=== PATIENT | male | born 1955 | race Caucasian/White ===

== ENCOUNTER 2016-05-07 07:16 | Inpatient (IN) | payer BC, OTHER ==
[2016-04-20 13:14] VITALS: BMI 29.0
[2016-04-20 13:30] VITALS: BMI 29.0
--- NOTE | 2016-04-20 13:54 | PAT Medication Instructions ---
Service Date Apr 20, 2016. Current Home Medication List Allopurinol (Zyloprim), 300 MG PO QAM Clonidine Hcl (Catapres), 0.3 MG PO QPM Gabapentin (Neurontin), 300 MG PO QID Hydrocodone Bitartrate (Hysingla ER), 100 MG PO QAM Oxymorphone Hcl (Opana), 10 MG PO Q8H Prednisone (Prednisone), 10 MG PO QAM Pseudoephedrine (Sudafed), 30 MG PO Q12H [Mulaxalone], 800 MG PO PRN Medication Instructions For Your Scheduled Surgery - Hold the following medications the morning of surgery: Pseudoephedrine (Sudafed), 30 MG PO Q12H Metaxalone 800 MG PO PRN - Take the following medications the morning of surgery with a sip of water: Prednisone (Prednisone), 10 MG PO QAM Oxymorphone Hcl (Opana), 10 MG PO Q8H (can take up to four hours prior to surgery) Gabapentin (Neurontin), 300 MG PO QID Allopurinol (Zyloprim), 300 MG PO QAM Hydrocodone Bitartrate (Hysingla ER), 100 MG PO QAM (can take up to four hours prior to surgery) - Take the following medications as scheduled the night before surgery: Pseudoephedrine (Sudafed), 30 MG PO Q12H Oxymorphone Hcl (Opana), 10 MG PO Q8H Gabapentin (Neurontin), 300 MG PO QID Clonidine Hcl (Catapres), 0.3 MG PO QPM Metaxalone 800 MG PO PRN If you have any questions please call us at [phone] or [phone] ( [place]) or [phone]
--- NOTE | 2016-04-20 14:35 | DIAGNOSTIC IMAGING REPORT ---
TWO VIEW CHEST CLINICAL HISTORY: Preoperative examination. FINDINGS: PA and lateral chest radiographs are obtained. No prior studies are available for comparison at the time of dictation. The cardiomediastinal silhouette is unremarkable. There is mild atherosclerotic calcification of the thoracic aorta. The lungs and pleural spaces are clear. There is no pneumothorax. The bony thorax appears intact. Mild degenerative change is noted throughout the thoracic spine. IMPRESSION: No active disease in the chest. Electronically signed by: Roby Kurtz M.D. 04/20/2016 2:34 PM Dictated Date/Time: 04/20/2016 2:33 PM
[2016-04-20 14:48] LABS: URINE APPEARANCE CLEAR (CLEAR); URINE BILIRUBIN NEG (NEG); URINE COLOR YELLOW; URINE NITRITE NEG (NEG); URINE PH 5.5 (4.5-7.5); URINE SPECIFIC GRAVITY 1.002 (1.000-1.030); UROBILINOGEN NEG (NEG)
[2016-04-20 14:55] LABS: MANUAL MICROSCOPIC REQUIRED? NO; REVIEW REQ? NO
[2016-05-07] VITALS (10 sets, daily range): BP systolic 131–170; BP diastolic 74–90; PULSE 60–110; TEMP 36.4–36.8; O2SAT 91–98; Ht 170.2 cm; Wt 86.2 kg
[~2016-05-07] VITALS: Ht 170.2 cm; Wt 86.2 kg
[~2016-05-07 07:16] MED LIST: ALLO300T2 PO; CEFAZOLIN 2000 MG/60 ML D5W IV SCH; CLON0.3T3 PO; CeleBREX 200 MG CAP PO SCH; GABA-113 PO; LACTATED RINGER'S 1000ML 1,000 ML IV SCH; META1TAB22 PO; OXYM10TA6 PO; PRED10TA PO; PREGABALIN 75 MG CAP PO SCH; PROPOFOL IV EMULSION 10 MG/ML 100 ML VIAL IV ONE; PSEU30TA20 PO; [UNRECOGNIZED DRUG - CODE] PO
[2016-05-07] MEDS ORDERED: NURSING VERBAL MED ORDER STA (08:01)
[2016-05-07] MEDS ORDERED: MIDAZOLAM HCL 1 MG/ML 2ML VIAL ONE (10:13)
[2016-05-07] MEDS ORDERED: REMIFENTANIL 1 MG VIAL ONE ×2 (10:13→12:04)
[2016-05-07] MEDS ORDERED: FENTANYL CITRATE INJ 50 MCG/1 ML 2 ML VIAL ONE ×4 (10:13→12:21)
--- NOTE | 2016-05-07 10:28 | History and Physical ---
History & Physical Date May 07, 2016. Chief Complaint neck pain and bilateral hand numbness History of Present Illness The patient is a 60 year old male with complaints of above that have been chronic and progressive. He reports BUE myelopathic symptoms, mild balance problems, numbness in left hand. no incontinence. L hand weakness is worse. MRI shows multilevel spinal stenosis/congenital and acquired. no myelomalacia. Past Medical/Surgical History HTN Gout ash ZE ulnar neuropathy Additional History Hepatic Disease: No Endocrine Disorder: No Kidney Disease: No Hypertension: Yes Heart Disease: No Bleeding Tendencies: No Infectious Diseases: No Allergies Coded Allergies: Aspirin (Verified Allergy, Severe, TONGUE AND LIPS SWELL,HIVES, 05/07/16) Home Medications Scheduled Allopurinol (Zyloprim), 300 MG PO QAM Clonidine Hcl (Catapres), 0.3 MG PO QPM Gabapentin (Neurontin), 300 MG PO QID Hydrocodone Bitartrate (Hysingla ER), 100 MG PO QAM Oxymorphone Hcl (Opana), 10 MG PO Q8H Prednisone (Prednisone), 10 MG PO QAM Pseudoephedrine (Sudafed), 30 MG PO Q12H Scheduled PRN Metaxalone (Skelaxin), 1 TAB PO DAILY PRN for Pain Physical Examination Skin: warm/dry Eyes: normal inspection ENT: normal ENT inspection Head: normocephalic, atraumatic Neck: supple, trachea midline Respiratory/Chest: lungs clear Cardiovascular: regular rate, rhythm Back: normal inspection Extremities: normal inspection Neurologic/Psych: alert, normal reflexes, oriented x 3 Addiitonal Comments: L hand net manager weakness and decreased sensation ulnar digits Diagnosis cervical stenosis/DDD Plan of Treatment C3-6 decompression/fusion
[2016-05-07] MEDS ORDERED: THROMBIN FOR SOLN 20000 UNIT KIT ONE ×2 (10:40→11:53)
[2016-05-07] MEDS ORDERED: THROMBIN 5000 UNITS KIT ONE (10:40)
[2016-05-07] MEDS ORDERED: BUPIVACAINE/EPINEPHRINE 0.5% MPF 1:200,000 30 ML VIAL ONE (10:48)
[2016-05-07] MEDS ORDERED: FLOSEAL HEMOSTATIC MATRIX 5ML TOP ONE (12:53)
[2016-05-07] MEDS ORDERED: BETADINE OINTMENT (PACKETS) TOP ONE (12:53)
[2016-05-07] MEDS ORDERED: HYDROmorphone INJ 2 MG/ML SYR/VIAL ONE (12:57)
[2016-05-07] MEDS ORDERED: SODIUM CHLORIDE 0.9% 1000ML 1,000 ML IV SCH (13:00)
[2016-05-07] MEDS ORDERED: FAMOTIDINE 20 MG TAB PO PRN (13:00)
[2016-05-07] MEDS ORDERED: ALUMINUM/MAGNESIUM SUSP 30 ML UDC PO PRN (13:00)
[2016-05-07] MEDS ORDERED: METOCLOPRAMIDE HCL INJ 5 MG/ML 2 ML VIAL IV PRN (13:00)
[2016-05-07] MEDS ORDERED: LORAZEPAM INJ 0.5 MG in SYRINGE 0.75 ML IV PRN (13:00)
[2016-05-07] MEDS ORDERED: ONDANSETRON INJ 2 MG/ML 2 ML VIAL IV PRN ×2 (13:00→13:45)
[2016-05-07] MEDS ORDERED: ACETAMINOPHEN IV 100 ML IV PRN (13:00)
[2016-05-07] MEDS ORDERED: MAGNESIUM HYDROXIDE SUSP 30 ML UDC PO PRN (13:00)
[2016-05-07] MEDS ORDERED: NALOXONE HCL 0.4 MG/1 ML VIAL/CARP IV PRN ×3 (13:00→13:45)
[2016-05-07] MEDS ORDERED: LORAZEPAM 0.5 MG TAB PO PRN (13:00)
[2016-05-07] MEDS ORDERED: BISACODYL 10 MG SUPP PR PRN (13:00)
[2016-05-07] MEDS ORDERED: PROMETHAZINE HCL INJ 12.5 MG in SODIUM CHLORIDE 0.9% 50ML 50 ML IV PRN ×2 (13:00→13:45)
[2016-05-07] MEDS ORDERED: SOD PHOSPHATE/SOD BIPHOSPHATE ENEMA 132 ML BTL PR PRN (13:00)
--- NOTE | 2016-05-07 13:00 | [facility] Post Operative Brief Note ---
Immediate Operative Summary Operative Date May 07, 2016. Pre-Operative Diagnosis Cervical stenosis, Degenerative Disc Disease Post-Operative Diagnosis Cervical stenosis, Degenerative Disc Disease Procedure(s) Performed C3-C6 Posterior instrumented fusion and application of bone morphogenetic protein, with spinal cord monitoring Surgeon Dr. Santo Franklin It Trainee Surgeon(s) Orlin Beck PA-C Estimated Blood Loss 150 ml Findings dict Specimens None per surgeon
--- NOTE | 2016-05-07 13:14 | Discharge Instructions ---
Discharge Instructions Admission Reason for Admission: Cervical Spinal Stenosis Discharge Discharge Diagnosis / Problem: Cervical Stenosis Discharge Goals Goal(s): Decrease discomfort, Improve function, Increase independence Activity Recommendations Activity Limitations: as noted below Lifting Limitations: no more than 5 pounds Exercise/Sports Limitations: until after follow-up appointment May Resume Sexual Activity: after follow-up appointment Shower/Bathe: may shower/bathe in 3 days . Instructions / Follow-Up Instructions / Follow-Up ACTIVITY RECOMMENDATIONS: SELF CARE INSTRUCTIONS AFTER CERVICAL FUSIONS 1. No smoking. Smoking drastically decreases the chance of a solid fusion. 2. No bending, lifting more than 5 pounds, or twisting (roll like a log when turning in bed). 3. You may shower 3 days after surgery. Thoroughly dry wound. Do not soak in the tub. 4. Cervical collar: Must be worn at all times including sleeping. You may remove the brace only to bath, eat and if you are sitting in a recliner. 5. Please walk as much as you can for exercise. Gradually increase the distance that you walk as your endurance increases. SPECIAL CARE INSTRUCTIONS: VERY IMPORTANT TO READ AND REVIEW A. Do not take any anti-inflammatory medications (i.e. Indocin, Advil, Aspirin, Naprosyn, Aleve, Motrin, etc.) as these may inhibit the chance of a solid fusion. Tylenol is okay to take. B. Your surgical incision has been closed with a cosmetic suture under the skin that will dissolve in about 6 weeks. In 14 days, you can use a pair of clean scissors and cut the suture that is left outside of the skin at the ends of your incision. C. Complications are uncommon, but please contact us if you have any signs or symptoms of: 1. wound infection (fever higher than 102.5 degrees F, redness, separation of wound, drainage, or increasing pain from the incision) 2. blood clots in legs (pain, swelling, redness and warmth in legs) 3. urinary tract infection (fever higher than 102.5 degrees, burning upon urination or increased frequency of urination) 4. nerve problems (inability to walk on your toes or heels, numbness, loss of bowel or bladder control) 5. any other symptoms that concern you. D. Please call the office at if you have any concerns or questions about your operation or recovery. MANAGING PAIN AFTER SPINAL SURGERY 1. Narcotic medication is intended for short-term use and will be provided for surgical pain. Surgical pain usually lasts for a period of 4-6 weeks. Narcotic medication includes Percocet, Vicodin, Darvocet, Tylenol #3 or Lortab. 2. Longer-term pain is more appropriately treated with non-narcotic medication such as Tylenol ES. 3. Muscle spasm is not appropriately treated with narcotics. Muscle relaxers such as Soma, Flexeril or Skelaxin can be used along with Tylenol ES. 4. Remember that we all live with some "aches and pains". This is not unusual or uncommon after an injury or as we get older. 5. We will provide appropriate medication within the normal guidelines of their prescribed use. We will also be very cautious and aware of potential abuse and extended duration of patients' medication needs. 6. Please allow 2-3 days to process refills. Prescriptions will not be mailed but must be picked up at the office. FOLLOW UP VISIT: Keep your scheduled follow-up appointment. Any questions, please call the office at . Current Hospital Diet Patient's current hospital diet: Regular Diet Discharge Diet Recommended Diet: Regular Diet Procedures Procedures Performed: C3-C6 Posterior instrumented fusion and application of bone morphogenetic protein, with spinal cord monitoring Pending Studies Studies pending at discharge: no Medical Emergencies . Who to Call and When: Medical Emergencies: If at any time you feel your situation is an emergency, please call 911 immediately. . Non-Emergent Contact Non-Emergency issues call your: Surgeon Call Non-Emergent contact if: temperature is above 101, your pain is not controlled, your pain is worsening, your pain is unusual for you, your pain is concerning you, wound has increased drainage, wound has increased redness, wound has increased pain, you have any medication questions . "Provider Documentation" section prepared by Orlin Beck. VTE Core Measure Inpt VTE Proph given/why not?: [place] [employer] [facility] [employer] [facility] Search Results: patient reviewed within database, no issues identified
[2016-05-07] MEDS ORDERED: HydrALAZINE HCL 20 MG/ML VIAL ONE (13:20)
[2016-05-07] MEDS ORDERED: HYDROmorphone HCL 0.5MG/ML 50 ML CASSETTE ONE (13:25)
[2016-05-07] MEDS ORDERED: DEXAMETHASONE SOD INJ 4 MG/ML VIAL ONE (13:29)
[2016-05-07] MEDS ORDERED: ONDANSETRON INJ 2 MG/ML 2 ML VIAL ONE (13:29)
[2016-05-07] MEDS ORDERED: LIDOCAINE HCL 2% 2 ML VIAL (20MG/ML) ONE (13:29)
[2016-05-07] MEDS ORDERED: SUCCINYLCHOLINE CHLORIDE 20 MG/ML 10 ML VIAL IV ONE (13:29)
[2016-05-07] MEDS ORDERED: HYDROmorphone INJ 1 MG/ML SYR ONE (13:29)
[2016-05-07] MEDS ORDERED: PROPOFOL IV EMULSION 10 MG/ML 20 ML VIAL IV ONE (13:29)
[2016-05-07] MEDS: HYDROmorphone INJ 1 MG/ML SYR IV PRN ×8 (13:33→14:08)
[2016-05-07] MEDS ORDERED: LABETALOL HCL IV 5 MG/ML 20ML IV PRN (13:45)
[2016-05-07] MEDS ORDERED: EpHEDrine SULFATE INJ 50 MG/ML AMP IV PRN (13:45)
[2016-05-07] MEDS ORDERED: ATROPINE SULFATE 0.1 MG/ML 5ML SYR IV PRN (13:45)
[2016-05-07] MEDS ORDERED: FLUMAZENIL 0.1 MG/1 ML 10 ML VIAL IV PRN (13:45)
--- NOTE | 2016-05-07 14:15 | Anesthesiology Progress Note ---
Anesthesia Post Op Note Date & Time May 07, 2016 at 14:14 Vital Signs Pain Intensity: 6.0 Vital Signs Past 12 Hours Date Time Temp Pulse Resp B/P Pulse Ox O2 Delivery O2 Flow Rate FiO2 05/07/16 14:00 66 16 165/95 99 Nasal Cannula 4 05/07/16 13:50 73 16 175/112 100 Nasal Cannula 4 05/07/16 13:40 61 16 170/97 100 Mask 10 05/07/16 13:30 72 16 172/98 100 Mask 10 05/07/16 13:21 36.7 77 16 174/116 100 Mask 10 05/07/16 08:02 36.8 69 18 131/83 95 Room Air Notes Mental Status: alert / awake / arousable, participated in evaluation Pt Amnestic to Procedure: Yes Nausea / Vomiting: adequately controlled Pain: adequately controlled Airway Patency, RR, SpO2: stable & adequate BP & HR: stable & adequate Hydration State: stable & adequate Anesthetic Complications: no major complications apparent
--- NOTE | 2016-05-07 14:31 | DIAGNOSTIC IMAGING REPORT ---
INTRAOPERATIVE FLUOROSCOPIC IMAGES OF THE CERVICAL SPINE CLINICAL HISTORY: Posterior cervical fusion from C3 through C6. COMPARISON STUDY: No previous studies for comparison. Fluoroscopy time: 12 seconds. FINDINGS: These 4 fluoroscopic images demonstrate a posterior cervical spine fusion from C3 through C6. The hardware appears intact. There are interconnecting rods. Surgical drain is in place. Endotracheal tube is incidentally noted. IMPRESSION: Fluoroscopic images demonstrate a C3-C6 posterior fusion. Electronically signed by: Shadi Carmona M.D. 05/07/2016 2:30 PM Dictated Date/Time: 05/07/2016 2:28 PM
[2016-05-07] MEDS: HYDROmorphone HCL 0.5MG/ML 50 ML CASSETTE IV PRN ×3 (15:07→23:30)
[2016-05-07] MEDS: SODIUM CHLORIDE 0.9% 1000ML 1,000 ML IV SCH (15:28)
--- NOTE | 2016-05-07 15:50 | OPERATIVE REPORT ---
DATE OF OPERATION: 05/07/2016 PREOPERATIVE DIAGNOSES: 1. Cervical stenosis. 2. Cervical myelopathy. POSTOPERATIVE DIAGNOSIS: Same. PROCEDURES: 1. C4, C5 and C6 laminectomies. 2. Segmental lateral mass screw instrumentation - bilateral C3, C4, C5 and C6 with K2M posterior cervical system. 3. Posterior fusion C3-C6 - bilateral with Infuse BMP on a collagen sponge, tricalcium phosphate, local bone and bone putty. SURGEON: Dr. Franklin. OFFICE SPECIALIST: Orlin Beck PA-C. Please note he participated in all portions of the procedure and was critical for performance of the procedure, participated in positioning, prepping, draping, retraction and wound closure. ANESTHESIA: General endotracheal anesthesia. COMPLICATIONS: None. ESTIMATED BLOOD LOSS: 150 mL. DESCRIPTION OF PROCEDURE: After identification of patient and operative level, he was brought to the OR where he underwent induction of general anesthesia. He then had Negron tongs applied to the skull, positioned prone with spine-positioning pads on the Yaw table. Arms tucked to sides and well padded. All bony prominences were well padded. The posterior cervical region was sterilely prepped and draped in usual fashion. Antibiotics were administered. Time-out was performed. Level was confirmed and spinal cord monitoring signals were obtained and a midline incision was made from spinous process of C2-C7. I performed a routine posterior exposure, placed Gelpi retractors, confirmed level with fluoroscopy and marked the operative levels. I exposed the lateral masses bilaterally. I then did a midline decompression with complete removal of C4, C5 and C6 lamina en bloc. I created a trough on each side with a rehana and #1 Kerrison and then released the ligamentous attachments and remove the lamina and spinous processes en bloc. I then completed decompression with Kerrisons, performed foraminotomies as necessary, all nerve roots were decompressed. I applied FloSeal for hemostasis. I then predrilled lateral mass screw holes bilaterally from C3-C6. The drill on a stop, tapped all the holes, 12 mm screws were then placed from C3-C6 bilaterally using K2M system. I checked screw trajectory position and length with fluoroscopy. I then applied rods and end caps final tightening as well as a crosslink. I irrigated with bacitracin solution and decorticated the lateral masses with a high speed bur bilaterally from C3-C6 and then packed the lateral gutters with bone graft mixture consisting of Infuse BMP on a collagen sponge, tricalcium phosphate, local bone, and bone putty. Closed in layered fashion over NATE drain. All sponge and needle counts were correct at the end of the case. I attest to the content of the Intraoperative Record and any orders documented therein. Any exceptio ns are noted below.
[2016-05-07] MEDS ORDERED: NURSING VERBAL MED ORDER ONE (16:15)
[2016-05-07] MEDS: GABAPENTIN 300 MG CAP PO SCH ×2 (17:09→21:57)
[2016-05-07] MEDS: DEXAMETHASONE INJ 6 MG in SYRINGE 0 ML IV SCH (17:09)
[2016-05-07] MEDS: CEFAZOLIN IV 2,000 MG in DEXTROSE 5% 50ML 50 ML IV SCH (17:09)
[2016-05-07] MEDS: CLONIDINE HCL 0.3 MG TAB PO SCH (21:55)
[2016-05-07] MEDS: DOCUSATE SODIUM/SENNA 50/8.6MG TAB PO SCH (21:57)
[2016-05-08] MEDS: CEFAZOLIN IV 2,000 MG in DEXTROSE 5% 50ML 50 ML IV SCH (02:04)
[2016-05-08] MEDS: DEXAMETHASONE INJ 6 MG in SYRINGE 0 ML IV SCH ×2 (02:05→09:48)
[2016-05-08] MEDS: SODIUM CHLORIDE 0.9% 1000ML 1,000 ML IV SCH (02:06)
[2016-05-08 03:07] VITALS: BP 127/73; PULSE 60; TEMP 36.8; O2SAT 96
[2016-05-08] MEDS: OXYMORPHONE PO SCH ×5 (06:00→22:05)
[2016-05-08] MEDS ORDERED: OXYMORPHONE PO SCH (06:00)
[2016-05-08] MEDS ORDERED: HYDROmorphone INJ 0.5 MG/0.5 ML SYR IV PRN (06:00)
[2016-05-08] MEDS ORDERED: NURSING VERBAL MED ORDER ONE ×2 (06:15→14:15)
[2016-05-08 06:32] LABS: BASO % 0.1 %; BASO ABS # 0.01 K/uL (0-0.2); COMPLETE YES; EOS % 0.1 %; HEMATOCRIT 37.5 % (42-52); IG% 0.3 %; LYMPH % 3.9 %; LYMPH ABS # 0.78 K/uL (1.2-3.4); MEAN CELL VOLUME 92.4 fL (80-100); MEAN CORPUSCULAR HEMOGLOBIN 32.5 pg (25-34); MEAN CORPUSCULAR HGB CONC 35.2 g/dl (32-36); MONO % 3.3 %; NEUT % 92.3 %; PLATELET COUNT 222 K/uL (130-400); RED BLOOD COUNT 4.06 M/uL (4.7-6.1); WHITE BLOOD COUNT 19.99 K/uL (4.8-10.8)
[2016-05-08 07:02] LABS: BUN/CREATININE RATIO 15.8 (10-20); CALCIUM 8.4 mg/dl (8.5-10.1); CREATININE 0.88 mg/dl (0.60-1.40)
[2016-05-08 07:08] VITALS: BP 138/80; PULSE 45; TEMP 36.7; O2SAT 95
[2016-05-08] MEDS: GABAPENTIN 300 MG CAP PO SCH ×4 (08:23→22:04)
[2016-05-08] MEDS: ALLOPURINOL 300 MG TAB PO SCH (08:24)
[2016-05-08] MEDS ORDERED: HYDROmorphone INJ 1 MG/ML SYR ONE (08:27)
[2016-05-08] MEDS: OXYCODONE HCL IR 5 MG TAB (IMMEDIATE RELEASE) PO PRN ×2 (11:45→17:58)
[2016-05-08 12:00] VITALS: BP 161/74; PULSE 58; TEMP 36.7; O2SAT 96
[2016-05-08] MEDS: HYDROmorphone INJ 1 MG/ML SYR IV PRN ×4 (12:10→22:06)
[2016-05-08 15:18] VITALS: BP 121/79; PULSE 66; TEMP 36.6; O2SAT 95
[2016-05-08] MEDS ORDERED: OXYMORPHONE PO PRN ×2 (15:45→16:15)
[2016-05-08] MEDS ORDERED: HYDROCODONE PO PRN ×2 (16:00→16:15)
[2016-05-08 16:30] VITALS: O2SAT 95
[2016-05-08] MEDS: DOCUSATE SODIUM/SENNA 50/8.6MG TAB PO SCH (22:04)
[2016-05-08] MEDS: CLONIDINE HCL 0.3 MG TAB PO SCH (22:04)
[2016-05-08 23:05] VITALS: BP 142/73; PULSE 68; TEMP 36.7; O2SAT 93
[2016-05-09] MEDS: OXYCODONE HCL IR 5 MG TAB (IMMEDIATE RELEASE) PO PRN ×4 (03:46→20:28)
[2016-05-09] MEDS: HYDROmorphone INJ 1 MG/ML SYR IV PRN ×2 (04:09→07:35)
[2016-05-09] MEDS: OXYMORPHONE PO SCH ×3 (05:56→21:19)
[2016-05-09 07:24] VITALS: BP 151/73; PULSE 58; TEMP 36.5; O2SAT 95
[2016-05-09] MEDS: ALLOPURINOL 300 MG TAB PO SCH (08:27)
[2016-05-09] MEDS: GABAPENTIN 300 MG CAP PO SCH ×4 (08:59→20:45)
[2016-05-09] MEDS ORDERED: HYDROCODONE PO SCH (09:00)
[2016-05-09] MEDS ORDERED: NON-FORMULARY PATIENT'S OWN MED PO SCH ×2 (10:00)
[2016-05-09] MEDS ORDERED: HYDROmorphone INJ 2 MG/ML SYR/VIAL ONE (10:17)
--- NOTE | 2016-05-09 10:23 | Orthopedic Progress Note ---
Orthopedic Progress Note Date of Service May 09, 2016. Subjective Post OP Day: 2 Denies: SOB, calf pain, chest pain, complaints, feeling well, light headedness, nausea / vomiting, pain controlled w PO medications, using SOLID WASTE COLLECTOR Additional Notes: pain control an issue, pharmacy does not have his home meds,d Objective Date Time Temp Pulse Resp B/P Pulse Ox O2 Delivery O2 Flow Rate FiO2 05/09/16 09:37 Room Air 05/09/16 07:24 36.5 58 18 151/73 95 Room Air 05/09/16 00:20 Room Air 05/08/16 23:05 36.7 68 17 142/73 93 Room Air 05/08/16 16:30 95 Room Air 05/08/16 15:18 36.6 66 18 121/79 95 Room Air 05/08/16 12:00 36.7 58 16 161/74 96 Room Air Assessment & Plan Assessment: he will start his long acting hycingla today, add decadron and dilaudi Discharge Planning Discharge Planning: home Pain Management: other DVT Prophylaxis: SCDs
[2016-05-09] MEDS: DEXAMETHASONE INJ 8 MG in SYRINGE 0 ML IV SCH ×2 (12:40→20:45)
[2016-05-09 15:10] VITALS: BP 141/75; PULSE 60; TEMP 36.7; O2SAT 96
[2016-05-09 15:30] VITALS: O2SAT 96
[2016-05-09] MEDS: HYDROmorphone INJ 2 MG/ML SYR/VIAL IV PRN ×2 (16:46→23:43)
[2016-05-09 20:45] VITALS: BP 148/83; PULSE 65
[2016-05-09] MEDS: DOCUSATE SODIUM/SENNA 50/8.6MG TAB PO SCH (20:45)
[2016-05-09] MEDS: CLONIDINE HCL 0.3 MG TAB PO SCH (20:47)
[2016-05-09 23:23] VITALS: BP 129/83; PULSE 72; TEMP 36.8; O2SAT 95
[2016-05-10] MEDS: OXYCODONE HCL IR 5 MG TAB (IMMEDIATE RELEASE) PO PRN ×3 (02:02→11:13)
[2016-05-10] MEDS: DEXAMETHASONE INJ 8 MG in SYRINGE 0 ML IV SCH ×2 (04:11→11:59)
[2016-05-10] MEDS: OXYMORPHONE PO SCH (05:24)
[2016-05-10] MEDS: HYDROmorphone INJ 2 MG/ML SYR/VIAL IV PRN (05:51)
[2016-05-10 07:03] VITALS: BP 124/68; PULSE 63; TEMP 36.8; O2SAT 95
[2016-05-10] MEDS: GABAPENTIN 300 MG CAP PO SCH ×2 (08:35→12:00)
[2016-05-10] MEDS: ALLOPURINOL 300 MG TAB PO SCH (08:36)
--- NOTE | 2016-05-10 11:33 | Orthopedic Progress Note ---
Orthopedic Progress Note Date of Service May 10, 2016. 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
[2016-05-10 12:35] VITALS: BP 124/68; PULSE 63; TEMP 36.8; O2SAT 95
--- NOTE | 2016-05-12 12:53 | Pain Management Consultation ---
Pain Management Consultation Date of Consultation May 12, 2016. Reason for Consultation This patient was not seen by me during this admission. He was discharged before being evaluated. Allergies Coded Allergies: Aspirin (Verified Allergy, Severe, TONGUE AND LIPS SWELL,HIVES, 05/07/16) Physical Exam Height & Weight: Height 5 feet, 7.00 inches. Weight 86.200 (Kilograms) 190 (Pounds) Last Vital Signs Documentation Date Time Temp Pulse Resp B/P Pulse Ox O2 Delivery O2 Flow Rate FiO2 05/10/16 12:35 36.8 63 16 95 Room Air 05/10/16 07:03 124/68 05/07/16 23:40 2.0 Laboratory / Imaging Results Laboratory Results (Last CBC): 05/08/16 06:05 Red Blood Count 4.06 L, Mean Corpuscular Volume 92.4, Mean Corpuscular Hemoglobin 32.5, Mean Corpuscular Hemoglobin Concent 35.2, Mean Platelet Volume 10.0, Neutrophils (%) (Auto) 92.3, Lymphocytes (%) (Auto) 3.9, Monocytes (%) ( Auto) 3.3, Eosinophils (%) (Auto) 0.1, Basophils (%) (Auto) 0.1, Neutrophils # ( Auto) 18.48 H, Lymphocytes # (Auto) 0.78 L, Monocytes # (Auto) 0.65 H, Eosinophils # (Auto) 0.01, Basophils # (Auto) 0.01 Assessment 1. [] 2. [] 3. [] 4. [] 5. [] Recommendations 1. [] 2. [] 3. [] 4. [] 5. [] Dragon Voice Recognition This chart was completed in part utilizing [employer] Voice Recognition Software. Random word insertions, pronoun errors, and incomplete sentences are an occasional consequence of this system due to software limitations and ambient noise. Any questions or concerns about the content, text or information contained within the body of this dictation should be directly addressed to the provider for clarification.
--- NOTE | 2016-05-18 23:16 | DISCHARGE SUMMARY ---
PREOPERATIVE DIAGNOSES: Cervical stenosis, cervical myelopathy. POSTOPERATIVE DIAGNOSES: Same. PROCEDURE: C4, C4, C6 laminectomies with posterior screw instrumentation C3, C4, C5 and C6, posterolateral fusion C3-C6. SURGEON: Dr. Santo Franklin. FINANCIAL DEALERS: Orlin Beck PA-C. HISTORY OF PRESENT ILLNESS: Please refer to EMR. HOSPITAL COURSE: On the above date, Mr. Mercado was admitted to [facility] with the above diagnosis. He was taken to preoperative holding where he was identified, evaluated, and cleared for surgical management. He was transported to the operating room, introduced with general endotracheal anesthesia, sterile conditions were set, and he successfully underwent the above procedure without complication or issue. He was awakened in stable and satisfactory condition and placed in hard collar immobilization and transported to postoperative recovery for continued care. Throughout his stay, pain and vitals were monitored and managed. He remained medically stable and was taken to the orthopedic floor for continued care. Throughout his stay, he had no difficulty breathing or swallowing. Medically, he remained stable, pain was well controlled. He remained in immobilization with no postoperative complications or iatrogenic issues to report. He was evaluated on the morning of 05/10/2016 and indicated for return home. On this date, he was discharged from [facility]. DISPOSITION: Home. DISPOSITION CONDITION: Stable. NOTED COMPLICATIONS OR ISSUES: Zero. DISCHARGE INSTRUCTIONS: Please refer to EMR.
== END 2016-05-10 13:07 | disposition home or self-care (01) | DRG 473 ==
LOC: ENRESERVTM → ENRESERVDT → C.ACU 07:16 → C.3E 13:03
PROVIDERS: ADMIT Orthopaedic Surgery Orthopaedic Surgery of the Spine; ATTEND Orthopaedic Surgery Orthopaedic Surgery of the Spine
PROC: 0RG2071 Fusion of 2 or more Cervical Vertebral Joints with Autologous Tissue Substitute, Posterior Approach, Posterior Column, Open Approach (ICD-10-PCS; principal; 2016-05-07 09:00)
PROC: 3E0V0GB Introduction of Recombinant Bone Morphogenetic Protein into Bones, Open Approach (ICD-10-PCS; principal; 2016-05-07 09:00)
DX: M47.12 Other spondylosis with myelopathy, cervical region (principal); M47.892 Other spondylosis, cervical region; M48.02 Spinal stenosis, cervical region; M10.9 Gout, unspecified; I10 Essential (primary) hypertension